=== PATIENT | female | born 1980 | race Caucasian/White ===

== ENCOUNTER 2021-04-22 13:31 | Emergency (ER) | payer MEDICAID ==
[~2021-04-22] VITALS: Ht 157.5 cm; Wt 61.2 kg
[2021-04-22 14:39] VITALS: BP 155/102
[2021-04-22] MEDS ORDERED: ONDANSETRON ODT 4 MG TAB PO ONE (14:45)
[2021-04-22] MEDS ORDERED: ACETAMINOPHEN/CODEINE#3 (300/30mg) TAB PO ONE (14:45)
== END 2021-04-22 15:51 | disposition left against medical advice (07) ==
LOC: ER 13:31
DX: U07.1 COVID-19 (principal); G44.209 Tension-type headache, unspecified, not intractable
CPT/HCPCS: 36415; 70450; 71045; 87426; 99285; Q0162

== ENCOUNTER 2024-01-24 21:50 | Emergency (ER) | payer MEDICAID ==
[~2024-01-24] VITALS: Ht 157.5 cm; Wt 68.8 kg
[2024-01-24 22:19] LABS: Urine Bacteria None Seen /hpf (None Seen)
[2024-01-24 22:29] LABS: Urine Blood 1+ /uL (Negative); Urine Clarity Clear (Clear); Urine Color Light-Yellow (Yellow); Urine Protein, UAD 1+ (Negative); Urine Specific Gravity 1.016 (1.001-1.035); Urine Urobilinogen Normal (Negative); Urine WBC 1 /hpf (0 - 5)
[2024-01-24 23:08] LABS: Basophils # (auto) 0.1 10 ^3/uL (0-0.2); Eosinophils # (auto) 0.4 10 ^3/uL (0-0.8); Lymphocytes # (auto) 3.8 10 ^3/uL (0.4-5.4); Monocytes # (auto) 0.7 10 ^3/uL (0-1.3); Nucleated Red Blood Cells % 0.1 %; Red Cell Distribution Width 14.3 % (11.8-14.3)
[2024-01-24 23:11] LABS: Eosinophils % (auto) 3.8 % (0.0-7.0); Hematocrit 42.1 % (36.0-46.0); Lymphocytes % (auto) 32.8 % (10.0-50.0); Mean Corpuscular Hemoglobin 29.1 pg (28.0-32.0); Mean Corpuscular Hgb Conc. 33.3 g/dL (32.0-36.0); Mean Corpuscular Volume 87.6 fL (80.0-100.0); Monocytes % (auto) 6.1 % (0.0-12.0); Neutrophils # (auto) 6.6 10 ^3/uL (1.6-8.6); Neutrophils % (auto) 56.3 % (37.0-80.0); Platelet Count (auto) 526 10^3/uL (140-450); White Blood Cell 11.7 10^3/uL (4.4-10.8)
[2024-01-24 23:25] LABS: Alanine Aminotransferase 14 U/L (7-40); Albumin 5.1 g/dL (3.2-4.8); Alkaline Phosphatase 130 U/L (46-116); Anion Gap 9 (5-15); Aspartate Aminotransferase 16 U/L (13-40); BUN/Creatinine Ratio 12.4 (10.0-20.0); Blood Urea Nitrogen 23 mg/dL (9-23); Calcium 9.9 mg/dL (8.7-10.4); Carbon Dioxide 24 mmol/L (20-31); Chloride 106 mmol/L (98-107); Glucose 107 mg/dL (74-106); Lipase 40 U/L (12-53); Potassium 3.1 mmol/L (3.5-5.1); Sodium 139 mmol/L (136-145)
[2024-01-24 23:26] LABS: Bilirubin, Total 0.4 mg/dL (0.2-1.0); Total Protein 8.2 g/dL (5.7-8.2)
[2024-01-25 00:37] VITALS: BP 149/90; PULSE 96; RESP 16; TEMP 98.1; O2SAT 99
[2024-01-25] MEDS: ONDANSETRON HCL 4 MG/2 ML VIAL IV ONE (00:37)
[2024-01-25] MEDS: KETOROLAC TROMETH 30 MG/ML 1ML VIAL IM ONE (00:42)
== END 2024-01-25 00:47 | disposition home or self-care (01) ==
LOC: ER 21:50
DX: K80.20 Calculus of gallbladder without cholecystitis without obstruction (principal)
CPT/HCPCS: 36415; 76705; 80053; 81001; 83690; 85025; 96372; 99285; J1885

== ENCOUNTER 2025-02-23 16:43 | Inpatient (IN) | payer MEDICAID ==
[~2025-02-23] VITALS: Ht 157.5 cm; Wt 68.0 kg
--- NOTE | 2025-02-23 17:58 | ED.PDOC ---
History of Present Illness HPI Comments 44-year-old female brought in by ambulance with a prior surgical history of a cholecystectomy, in the chief complaint of abdominal pain. Patient has been having right lower quadrant pain for the past hour associated with nausea. Patient notes on having some with the pain in the past. Denies any other symptoms at this time. Denies chills, fever, /V/D, SOB, CP. No other associated symptoms, modifiers, recent injuries or sick contacts present at this time. Chief Complaint: Abdominal Pain Time Seen by MD: 17:30 Primary Care Provider: LISS AYOUB Reviewed Notes: Nurses Notes, Medications, Allergies Allergies: Coded Allergies: NO KNOWN ALLERGIES (Unverified , 09/11/13) Information Source: Patient Mode of Arrival: EMS Severity: Moderate Timing: Minutes Duration: Since onset, Minutes Prehospital treatment: None Past Medical History Surgical History: Cholecystectomy, [employer] OFFICER History: No Pertinent [employer] OFFICER History Family History Family History: Reviewed,noncontributory to illness, Unknown Social History Smoker: Non-Smoker Alcohol: Denies ETOH Use Drugs: Denies Drug Use Lives In: Home Constitutional: denies: chills, diaphoresis, fatigue, fever, malaise, sweats, weakness, others EENTM: denies: blurred vision, double vision, ear bleeding, ear discharge, ear drainage, ear pain, ear ringing, eye pain, eye redness, hearing loss, mouth pain, mouth swelling, nasal discharge, nose bleeding, nose congestion, nose pain, photophobia, tearing, throat pain, throat swelling, voice changes, others Respiratory: denies: cough, hemoptysis, orthopnea, SOB at rest, shortness of breath, SOB with excertion, stridor, wheezing, others Cardiovascular: denies: chest pain, dizzy spells, diaphoresis, Dyspnea on exertion, edema, irregular heart beat, left arm pain, lightheadedness, palpitations, PND, syncope, others Gastrointestinal: reports: abdominal pain, nausea; denies: abdomen distended, blood streaked bowels, constipated, diarrhea, dysphagia, difficulty swallowing, hematemesis, melena, poor appetite, poor fluid intake, rectal bleeding, rectal pain, vomiting, others Genitourinary: denies: abnormal vagina bleeding, burning, dyspareunia, dysuria, flank pain, frequency, hematuria, incontinence, pain, , vagina discharge, urgency, others Neurological: denies: dizziness, fainting, headache, left sided numbness, left sided weakness, numbness, paresthesia, pre-existing deficit, right sided numbness, right sided weakness, seizure, speech problems, tingling, tremors, weakness, others Musculoskeletal: denies: back pain, gout, joint pain, joint swelling, muscle pain, muscle stiffness, neck pain, others Integumetry: denies: bruises, change in color, change in hair/nails, dryness, laceration, lesions, lumps, rash, wounds, others Allergic/Immunocompromised: denies: Difficulty Healing, Frequent Infections, Hives, Itching, others Hematologic/Lymphatic: denies: anemia, blood clots, easy bleeding, easy bruising, swollen glands, others Endocrine: denies: excessive hunger, excessive sweating, excessive thirst, excessive urination, flushing, intolerance to cold, intolerance to heat, unexplained weight gain, unexplained weight loss, others Psychiatric: denies: anxiety, bipolar disorder, depression, hopeless, panic disorder, schizophrenia, sleepless, suicidal, others All Other Systems: Reviewed and Negative Physical Exam General Appearance: No Apparent Distress, Normal HEENT: Normal ENT Inspection, Pharynx Normal, TMs Normal Neck: Full Range of Motion, Non-Tender, Normal, Normal Inspection Respiratory: Chest Non-Tender, Lungs Clear, No Accessory Muscle Use, No Respiratory Distress, Normal Breath Sounds Cardiovascular: No Edema, No JVD, No Murmur, No Gallop, Normal Peripheral Pulses, Regular Rate/Rhythm Breast Exam: Deferred Gastrointestinal: No Organomegaly, Non Tender, No Pulsatile Mass, Normal Bowel Sounds, Soft Genitalia: Deferred Pelvic: Deferred Rectal: Deferred Extremities: No calf tenderness, Normal capillary refill, Normal inspection, Normal range of motion, Non-tender, No pedal edema Musculoskeletal : Apperance: Normal Neurologic: Alert, contract administrative assistant II-XII nml as Tested, No Motor Deficits, Normal Affect, Normal Mood, No Sensory Deficits Cerebellar Function: Normal Reflexes: Normal Skin: Dry, Normal Color, Warm Lymphatic: No Adenopathy Was a procedure done? Was a procedure done?: No X-Ray, Labs, Meds, VS Vital Signs Date Time Temp Pulse Resp B/P (MAP) Pulse Ox O2 Delivery O2 Flow Rate FiO2 02/23/25 18:07 Room Air* 0 21 02/23/25 18:07 98.1 93 16 151/85 (107) 100 98.1 02/23/25 18:06 93 16 151/85 02/23/25 16:56 97.6 100 20 152/80 100 97.6 Lab Test 02/23/25 17:51 Range/Units White Blood Count 14.1 H 4.4-10.8 10^3/uL Red Blood Count 5.02 4.0-5.20 10^6/uL Hemoglobin 14.1 12.2-16.2 g/dL Hematocrit 41.9 36.0-46.0 % Mean Corpuscular Volume 83.5 80.0-100.0 fL Mean Corpuscular Hemoglobin 28.1 28.0-32.0 pg Mean Corpuscular Hemoglobin Concent 33.6 32.0-36.0 g/dL Red Cell Distribution Width 13.9 11.8-14.3 % Platelet Count 478 H 140-450 10^3/uL Mean Platelet Volume 7.2 6.9-10.8 fL Neutrophils (%) (Auto) 84.6 H 37.0-80.0 % Lymphocytes (%) (Auto) 10.2 10.0-50.0 % Monocytes (%) (Auto) 3.8 0.0-12.0 % Eosinophils (%) (Auto) 0.8 0.0-7.0 % Basophils (%) (Auto) 0.6 0.0-2.0 % Neutrophils # (Auto) 11.9 H 1.6-8.6 10 ^3/uL Lymphocytes # (Auto) 1.4 0.4-5.4 10 ^3/uL Monocytes # (Auto) 0.5 0-1.3 10 ^3/uL Eosinophils # (Auto) 0.1 0-0.8 10 ^3/uL Basophils # (Auto) 0.1 0-0.2 10 ^3/uL Nucleated Red Blood Cells 0.3 % Sodium Level 138 136-145 mmol/L Potassium Level 4.1 3.5-5.1 mmol/L Chloride Level 102 98-107 mmol/L Carbon Dioxide Level 25 20-31 mmol/L Anion Gap 11 5-15 Blood Urea Nitrogen 27 H 9-23 mg/dL Creatinine 2.07 H 0.550-1.02 mg/dL Glomerular Filtration Rate Calc 30 >90 mL/min BUN/Creatinine Ratio 13.0 10.0-20.0 Serum Glucose 118 H 74-106 mg/dL Calcium Level 9.7 8.7-10.4 mg/dL Total Bilirubin 0.4 0.2-1.0 mg/dL Aspartate Amino Transferase (AST) 22 13-40 U/L Alanine Aminotransferase (ALT) 13 7-40 U/L Alkaline Phosphatase 127 H 46-116 U/L Total Protein 8.3 H 5.7-8.2 g/dL Albumin 4.7 3.2-4.8 g/dL Lipase 30 12-53 U/L Current Medications Medications (Trade) Dose Ordered Sig/Que Route Start Time Stop Time Status Last Admin Sodium Chloride 1,000 ml @ 1,000 mls/hr Q1H ONCE IV 02/23/25 17:30 02/23/25 18:29 DC 02/23/25 18:00 Morphine Sulfate 4 mg ONCE ONCE IV 02/23/25 17:30 02/23/25 17:31 DC 02/23/25 18:06 Ondansetron HCl (Zofran) 4 mg ONCE ONCE IV 02/23/25 17:30 02/23/25 17:31 DC 02/23/25 18:03 Time of 1ST Reevaluation: 18:00 Reevaluation 1ST: Unchanged Patient Education/Counseling: Diagnosis, Treatment, Prognosis Family Education/Counseling: No Family Present SEPSIS Sepsis Screen Date sepsis recognized/suspect: Feb 23, 2025 Time Sepsis recognized/suspect: 1700 Recent Procedure: No On Antibiotic Therapy: No Respiratory Rate >20: No Heart Rate >90: Yes Temp<36 C (96.8 F) or >38.3 C: No SBP <90 or MAP <65 mmHG: No New Acute Mental Status Change: No Is the patient on CPAP, BIPAP,: No Physician Orders Urinalysis (02/23/25 17:29) Ct Ab Pel Wo Con-No Oral Or Iv (02/23/25 18:35) Vital Signs Date Time Temp Pulse Resp B/P (MAP) Pulse Ox O2 Delivery O2 Flow Rate FiO2 02/23/25 18:07 Room Air* 0 21 02/23/25 18:07 98.1 93 16 151/85 (107) 100 98.1 02/23/25 18:06 93 16 151/85 02/23/25 16:56 97.6 100 20 152/80 100 97.6 Laboratory Tests Test 02/23/25 17:51 White Blood Count 14.1 10^3/uL (4.4-10.8) H Medications Medications Dose Ordered Sig/Que Route Start Time Stop Time Status Last Admin Dose Admin Morphine Sulfate 4 mg ONCE ONCE IV 02/23/25 17:30 02/23/25 17:31 DC 02/23/25 18:06 Ondansetron HCl 4 mg ONCE ONCE IV 02/23/25 17:30 02/23/25 17:31 DC 02/23/25 18:03 Sodium Chloride 1,000 ml @ 1,000 mls/hr Q1H ONCE IV 02/23/25 17:30 02/23/25 18:29 DC 02/23/25 18:00 Departure 1 Departure Time of Disposition: 19:43 Impression: Primary Impression: Abdominal pain Additional Impressions: Adrenalitis JOSE (acute kidney injury) Critical Care Note Critical Care Time?: No Stability Stability form required: No I personally scribed for MARISA HOOD MD ([email or web address]) on 02/23/25 at 17:58. Electronically submitted by Aleksandr Dill ([email or web address]). MARISA HOOD MD Feb 23, 2025 17:58 JESSIE PETER MD Feb 23, 2025 19:44
[2025-02-23] MEDS: SODIUM CHLORIDE 0.9% 1,000 ML IV ONE (18:00)
[2025-02-23] MEDS: ONDANSETRON HCL 4 MG/2 ML VIAL IV ONE (18:03)
[2025-02-23 18:04] LABS: Hemoglobin 14.1 g/dL (12.2-16.2); Mean Corpuscular Volume 83.5 fL (80.0-100.0)
[2025-02-23 18:05] LABS: Hematocrit 41.9 % (36.0-46.0); Mean Corpuscular Hemoglobin 28.1 pg (28.0-32.0); Nucleated Red Blood Cells % 0.3 %
[2025-02-23] MEDS: MORPHINE SULFATE 4 MG/ML SYR/VIAL IV ONE (18:06)
[2025-02-23 18:07] VITALS: BP 151/85; PULSE 93; RESP 16; TEMP 98.1; O2SAT 100
[2025-02-23 18:12] LABS: Alanine Aminotransferase 13 U/L (7-40); Albumin 4.7 g/dL (3.2-4.8); Anion Gap 11 (5-15); BUN/Creatinine Ratio 13.0 (10.0-20.0); Calcium 9.7 mg/dL (8.7-10.4); Carbon Dioxide 25 mmol/L (20-31); Chloride 102 mmol/L (98-107); Lipase 30 U/L (12-53); Potassium 4.1 mmol/L (3.5-5.1); Sodium 138 mmol/L (136-145)
[2025-02-23 18:13] LABS: Bilirubin, Total 0.4 mg/dL (0.2-1.0)
[2025-02-23 18:17] LABS: Alkaline Phosphatase 127 U/L (46-116); Blood Urea Nitrogen 27 mg/dL (9-23); Glucose 118 mg/dL (74-106); Total Protein 8.3 g/dL (5.7-8.2)
--- NOTE | 2025-02-23 19:37 | DVH ---
COMPUTERIZED TOMOGRAPHY ABDOMEN AND PELVIS WITHOUT CONTRAST REASON FOR EXAM: Abdominal pain COMPARISON: None TECHNIQUE: Spiral scans were acquired from the diaphragm to the symphysis pubis without intravenous contrast administration. 2-D coronal and sagittal reformatted images were provided. Radiation optimization: All CT scans at this facility use at least one of these dose optimization techniques: Automated exposure control mA and/or kV adjustment per patient size (includes targeted exams where dose is matched to clinical indication) or iterative reconstruction. RADIATION DOSE: CTDI: 8 mGy DLP: 419 mGy-cm FINDINGS: There is minimal dependent atelectasis in bilateral lower lobes of the lungs. There is no pleural effusion. There is no pericardial effusion. The spleen is not enlarged. The liver is normal in size and contour. Evaluation of the abdominal organs is suboptimal in the absence of intravenous contrast. The gallbladder is absent unenhanced appearance of the pancreas is grossly unremarkable. The adrenal glands appear mildly thickened. There is trace fat stranding about both adrenal glands. The kidneys are similar in size. There is no hydronephrosis of either kidney. There is mild prominence of bilateral renal pelves. No renal, ureteral, or bladder calculus is identified. The urinary bladder is within normal limits. The uterus and ovaries are within normal limits. No free fluid is identified in the abdomen or pelvis. The colonic stool burden is small. The appendix is normal. There is no distention of the small bowel. There is no abdominal aortic aneurysm. There is no pathologic lymphadenopathy by size criteria IMPRESSION: Mild thickening of bilateral adrenal glands with trace surrounding fat stranding concerning for bilateral adrenalitis. No free fluid or abscess identified. No evidence of bowel obstruction. Normal appendix.
[2025-02-23 19:54] LABS: Urine Protein, UAD 1+ (Negative)
[2025-02-23] MEDS ORDERED: HYDROcodone-ACET 5/325MG TAB PO PRN (21:00)
--- NOTE | 2025-02-23 21:03 | DVHHPRES ---
History of Present Illness Resident Creating Document: PIEDAD MURPHY RESIDENT History of Present Illness This is a 44-year-old female with past medical history of hypertension, CKD stage 4 presented to the ED with a chief complaint of severe upper abdominal pain and nausea since 4:00 p.m. prior to this visit. The patient stated that since 4:00 p.m. she started having severe upper abdominal pain which is sharp colicky pain, 15/10, localized, nonradiating without any aggravating and relieving factors and associated with nausea. She also complaint of burning sensation in the urine, urgency and hesitancy for the same duration. She denies fever, chills, shortness of breath, vomiting, recent traveling, positive sick contact or any altered bowel habit. PCP: Dr. Kang Past Medical History Hypertension, CKD stage 4 Past Surgical History: Cholecystectomy Past Surgical History Cholecystectomy, Family History Noncontributory Past Social History Lives with family Former smoker, vapes, nonalcoholic and never did any other drugs Review of Systems Constitutional: No: Fever, Chills, Sweats, Weakness, Malaise, Other Eyes: No: Pain, Vision change, Conjunctivae inflammation, Eyelid inflammation, Other, Redness ENT: No: Ear pain, Ear discharge, Nose pain, Nose discharge, Nose congestion, Mouth pain, Mouth swelling, Throat pain, Throat swelling, Other Respiratory: No: Cough, Dry, Shortness of breath, SOB with excertion, Wheezing, Hemoptysis, Pleuritic Pain, Sputum, Wheezing, Other Cardiovascular: No: Chest Pain, Palpitations, Orthopnea, Paroxysmal Noc. Dyspnea, Edema, Lt Headedness, Other Gastrointestinal: Nausea, Abdominal Pain; No: Vomiting, Diarrhea, Constipation, Melena, Hematochezia, Other Genitourinary: Dysuria, Frequency; No Incontinence, No Hematuria, No Retention, No Other Musculoskeletal: No: other, neck pain, shoulder pain, arm pain, back pain, hand pain, leg pain, foot pain Skin: No: Rash, Lesions, Jaundice, Bruising, Other Neurological: No: Weakness, Numbness, Incoordination, Change in speech, Confusion, Seizures, Other Allergies: Coded Allergies: NO KNOWN ALLERGIES (Unverified , 09/11/13) Medications Current Medications Medications Dose Ordered Sig/Que Route Start Time Stop Time Status Last Admin Dose Admin Ceftriaxone Sodium 50 ml @ 100 mls/hr DAILY IV 02/24/25 10:00 UNV Acetaminophen/ Hydrocodone Bitart 1 tab Q4HPRN PRN PO 02/23/25 21:00 UNV Exam Vital Signs Vital Signs Date Time Temp Pulse Resp B/P (MAP) Pulse Ox O2 Delivery O2 Flow Rate FiO2 02/23/25 18:07 Room Air* 0 21 02/23/25 18:07 98.1 93 16 151/85 (107) 100 98.1 Exam Physical examination: General Appearance: Alert, Oriented X3, Cooperative, No acute distress HEENT: Atraumatic, PERRLA, EOMI, Mucous membrane moist/pink Respiratory: Clear to auscultation, Normal air movement Cardiovascular: Regular rate, Normal S1, Normal S2, No murmurs, no chest wall tenderness Abdominal: Normal bowel sounds, Soft, mild tenderness in the epigastric region, No hepatospenomegaly, No masses Extremities: No clubbing, No cyanosis, No edema, Normal pulses, No tenderness/swelling Skin: No rashes, No breakdown, No significant lesion Neuro: Normal gait, Normal speech, Strength at 5/5 X4 ext, Normal tone, Sensation intact, Cranial nerves 3-12 NL, Reflexes 2+ Psych/Mental Status: Mental status NL, Mood NL Labs/Xrays Labs Test 02/23/25 19:20 02/23/25 17:51 Range/Units Urine Color Light-yellow Yellow Urine Clarity Clear Clear Urine pH 6.0 5.0-9.0 Urine Specific [place] 1.013 1.001-1.035 Urine Protein 1+ H Negative Urine Ketones Negative Negative Urine Blood 1+ H Negative /uL Urine Nitrite Negative Negative Urine Bilirubin Negative Negative Urine Urobilinogen Normal Negative mg/dL Urine Leukocyte Esterase 2+ Negative /uL Urine RBC 6 0 - 4 /hpf Urine Microscopic WBC 3 0-5 /HPF Urine Squamous Epithelial Cells Few <5 /hpf Urine Bacteria Few H None Seen /hpf Urine Glucose Normal Normal mg/dL White Blood Count 14.1 H 4.4-10.8 10^3/uL Red Blood Count 5.02 4.0-5.20 10^6/uL Hemoglobin 14.1 12.2-16.2 g/dL Hematocrit 41.9 36.0-46.0 % Mean Corpuscular Volume 83.5 80.0-100.0 fL Mean Corpuscular Hemoglobin 28.1 28.0-32.0 pg Mean Corpuscular Hemoglobin Concent 33.6 32.0-36.0 g/dL Red Cell Distribution Width 13.9 11.8-14.3 % Platelet Count 478 H 140-450 10^3/uL Mean Platelet Volume 7.2 6.9-10.8 fL Neutrophils (%) (Auto) 84.6 H 37.0-80.0 % Lymphocytes (%) (Auto) 10.2 10.0-50.0 % Monocytes (%) (Auto) 3.8 0.0-12.0 % Eosinophils (%) (Auto) 0.8 0.0-7.0 % Basophils (%) (Auto) 0.6 0.0-2.0 % Neutrophils # (Auto) 11.9 H 1.6-8.6 10 ^3/uL Lymphocytes # (Auto) 1.4 0.4-5.4 10 ^3/uL Monocytes # (Auto) 0.5 0-1.3 10 ^3/uL Eosinophils # (Auto) 0.1 0-0.8 10 ^3/uL Basophils # (Auto) 0.1 0-0.2 10 ^3/uL Nucleated Red Blood Cells 0.3 % Sodium Level 138 136-145 mmol/L Potassium Level 4.1 3.5-5.1 mmol/L Chloride Level 102 98-107 mmol/L Carbon Dioxide Level 25 20-31 mmol/L Anion Gap 11 5-15 Blood Urea Nitrogen 27 H 9-23 mg/dL Creatinine 2.07 H 0.550-1.02 mg/dL Glomerular Filtration Rate Calc 30 >90 mL/min BUN/Creatinine Ratio 13.0 10.0-20.0 Serum Glucose 118 H 74-106 mg/dL Calcium Level 9.7 8.7-10.4 mg/dL Lipase 30 12-53 U/L SEPSIS Sepsis Screen Date sepsis recognized/suspect: Feb 23, 2025 Time Sepsis recognized/suspect: 1811 Recent Procedure: No On Antibiotic Therapy: No Respiratory Rate >20: No Heart Rate >90: No Temp<36 C (96.8 F) or >38.3 C: No SBP <90 or MAP <65 mmHG: No New Acute Mental Status Change: No Is the patient on CPAP, BIPAP,: No Physician Orders Ct Ab Pel Wo Con-No Oral Or Iv (02/23/25 18:35) Admit (02/23/25 20:53) Lactic Acid W/ Reflex Order (02/23/25 20:53) Hepatic Panel (02/23/25 20:53) Troponin-I Hs (02/23/25 20:53) Urine Bacterial Culture (02/23/25 20:53) Kidney (02/23/25 20:53) Ceftriaxone 1gm/50ml (Rocephin) (02/23/25 21:00) Ceftriaxone 1gm/50ml (Rocephin) (02/24/25 10:00) Code Status (02/23/25 20:53) Hydrocodone-Acet 5/325mg Tab (Ida 32 (02/23/25 21:00) Clear Liq Diet (02/24/25 Breakfast) Vital Signs Date Time Temp Pulse Resp B/P (MAP) Pulse Ox O2 Delivery O2 Flow Rate FiO2 02/23/25 18:07 Room Air* 0 21 02/23/25 18:07 98.1 93 16 151/85 (107) 100 98.1 02/23/25 18:06 93 16 151/85 02/23/25 16:56 97.6 100 20 152/80 100 97.6 Laboratory Tests Test 02/23/25 17:51 White Blood Count 14.1 10^3/uL (4.4-10.8) H Medications Medications Dose Ordered Sig/Que Route Start Time Stop Time Status Last Admin Dose Admin Morphine Sulfate 4 mg ONCE ONCE IV 02/23/25 17:30 02/23/25 17:31 DC 02/23/25 18:06 4 MG Ondansetron HCl 4 mg ONCE ONCE IV 02/23/25 17:30 02/23/25 17:31 DC 02/23/25 18:03 4 MG Sodium Chloride 1,000 ml @ 1,000 mls/hr Q1H ONCE IV 02/23/25 17:30 02/23/25 18:29 DC 02/23/25 18:00 1,000 MLS/HR Assessment/Plan Assessment/Plan Assessment and plan: # Acute complicated UTI # Bilateral adrenalitis # Intractable abdominal pain due to above # Possible JOSE superimposed on CKD stage 4 - CT abdomen pelvis without contrast demonstrated mild thickening of bilateral adrenal glands with trace surrounding fat stranding concerning for bilateral adrenalitis. - U/A was consistent with UTI - pending lactic acid, kidney ultrasound, urine bacterial culture - IV ceftriaxone 1 g daily - IV NS 75 cc/hour daily - IV ondansetron 4 mg IV once Goal of care and code status discussed with the patient for more than 20 minutes full code Plan discussed with Dr. Samano Plan discussed with: Patient, Other (RN) My Orders Orders - PIEDAD MURPHY RESIDENT Procedure Category Date Status Time Admit ADMIT 02/23/25 Transmitted 20:53 Lactic Acid W/ Reflex LAB 02/23/25 Logged Order 20:53 Hepatic Panel LAB 02/23/25 Logged 20:53 Troponin-I Hs LAB 02/23/25 Logged 20:53 Urine Bacterial GRIS 02/23/25 Logged Culture 20:53 Kidney US 02/23/25 Logged 20:53 Ceftriaxone 1gm/50ml PHA 02/23/25 Logged (Rocephin) 21:00 Ceftriaxone 1gm/50ml PHA 02/24/25 Logged (Rocephin) 10:00 Code Status CODE 02/23/25 Transmitted 20:53 Hydrocodone-Acet PHA 02/23/25 Logged 5/325mg Tab (Ida 21:00 Clear Liq Diet DIET 02/24/25 Verified Breakfast Date of Service: Feb 23, 2025 Billing Provider: MARY SAMANO MD Common Visit Codes: 50934-[id number] INP/OBS CARE (HIGH) Secondary Visit Codes: 35527-[id number] CARE PLAN 30 MINUTES PIEDAD MURPHY RESIDENT Feb 23, 2025 21:03
--- NOTE | 2025-02-23 22:25 | DVH ---
INDICATION: JOSE on CKD TECHNIQUE: Multiple real-time sonographic images of the kidneys and bladder were obtained. COMPARISON: Non none e FINDINGS: The right kidney measures 8.4 cm cm in length, which is normal in size. There is normal echogenicity of the right kidney. No hydronephrosis. The left kidney measures 8 cm cm in length, which is normal in size. There is normal echogenicity of the left kidney. No hydronephrosis. No large intraluminal masses are seen in the bladder. Prior to voiding the bladder volume measures volume 96.6 mL Bilateral ureteral jets were visualized. Bladder wall measures 2 mm. No postvoid bladder images were received. IMPRESSION: 1. Right kidney measures 8.4 cm. Left kidney measures 8 cm. Findings are consistent with renal atrophy. 2. Prevoid bladder volume 96.6 mL. No postvoid bladder volume was received. 3. Bilateral ureteral jets were visualized.
--- NOTE | 2025-02-24 06:54 | DVHDSRES ---
Discharge Summary Date of Admission Resident Creating Document: PIEDAD MURPHY RESIDENT Feb 23, 2025 at 20:53 Date of Discharge: Feb 24, 2025 Admitting Diagnosis Intractable abdominal pain Wounds: No open wound was present Labs/Diagnostic Data: Laboratory Results Test 02/23/25 20:53 02/23/25 19:20 02/23/25 17:51 Lactic Acid Level 0.7 mmol/L (0.4-2.0) Urine Color Light-yellow (Yellow) Urine Clarity Clear (Clear) Urine pH 6.0 (5.0-9.0) Urine Specific Viola 1.013 (1.001-1.035) Urine Protein 1+ (Negative) Urine Ketones Negative (Negative) Urine Blood 1+ /uL (Negative) Urine Nitrite Negative (Negative) Urine Bilirubin Negative (Negative) Urine Urobilinogen Normal mg/dL (Negative) Urine Leukocyte Esterase 2+ /uL (Negative) Urine RBC 6 /hpf (0 - 4) Urine Microscopic WBC 3 /HPF (0-5) Urine Squamous Epithelial Cells Few /hpf (<5) Urine Bacteria Few /hpf (None Seen) Urine Glucose Normal mg/dL (Normal) White Blood Count 14.1 10^3/uL (4.4-10.8) Red Blood Count 5.02 10^6/uL (4.0-5.20) Hemoglobin 14.1 g/dL (12.2-16.2) Hematocrit 41.9 % (36.0-46.0) Mean Corpuscular Volume 83.5 fL (80.0-100.0) Mean Corpuscular Hemoglobin 28.1 pg (28.0-32.0) Mean Corpuscular Hemoglobin Concent 33.6 g/dL (32.0-36.0) Red Cell Distribution Width 13.9 % (11.8-14.3) Platelet Count 478 10^3/uL (140-450) Mean Platelet Volume 7.2 fL (6.9-10.8) Neutrophils (%) (Auto) 84.6 % (37.0-80.0) Lymphocytes (%) (Auto) 10.2 % (10.0-50.0) Monocytes (%) (Auto) 3.8 % (0.0-12.0) Eosinophils (%) (Auto) 0.8 % (0.0-7.0) Basophils (%) (Auto) 0.6 % (0.0-2.0) Neutrophils # (Auto) 11.9 10 ^3/uL (1.6-8.6) Lymphocytes # (Auto) 1.4 10 ^3/uL (0.4-5.4) Monocytes # (Auto) 0.5 10 ^3/uL (0-1.3) Eosinophils # (Auto) 0.1 10 ^3/uL (0-0.8) Basophils # (Auto) 0.1 10 ^3/uL (0-0.2) Nucleated Red Blood Cells 0.3 % Sodium Level 138 mmol/L (136-145) Potassium Level 4.1 mmol/L (3.5-5.1) Chloride Level 102 mmol/L (98-107) Carbon Dioxide Level 25 mmol/L (20-31) Anion Gap 11 (5-15) Blood Urea Nitrogen 27 mg/dL (9-23) Creatinine 2.07 mg/dL (0.550-1.02) Glomerular Filtration Rate Calc 30 mL/min (>90) BUN/Creatinine Ratio 13.0 (10.0-20.0) Serum Glucose 118 mg/dL (74-106) Calcium Level 9.7 mg/dL (8.7-10.4) Total Bilirubin 0.4 mg/dL (0.2-1.0) Direct Bilirubin < 0.1 mg/dL (<0.3) Aspartate Amino Transferase (AST) 22 U/L (13-40) Alanine Aminotransferase (ALT) 13 U/L (7-40) Alkaline Phosphatase 127 U/L (46-116) Troponin I High Sensitivity 7 ng/L (</=34) Total Protein 8.3 g/dL (5.7-8.2) Albumin 4.7 g/dL (3.2-4.8) Lipase 30 U/L (12-53) Thyroid Stimulating Hormone (TSH) 2.32 uIU/mL (0.55-4.78) Other Laboratory Tests 02/23/25 17:51 Brief Hx & Hospital Course: This is a 44-year-old female with past medical history of hypertension, CKD stage 4 presented to the ED with a chief complaint of severe upper abdominal pain and nausea since 4:00 p.m. prior to this visit. The patient stated that since 4:00 p.m. she started having severe upper abdominal pain which is sharp colicky pain, 15/10, localized, nonradiating without any aggravating and relieving factors and associated with nausea. She also complaint of burning sensation in the urine, urgency and hesitancy for the same duration. CT abdomen pelvis without contrast showed Mild thickening of bilateral adrenal glands with trace surrounding fat stranding concerning for bilateral adrenalitis. U/A was consistent with UTI. Patient was treated with IV N/S bolus, iv ceftriaxone 1 gm daily and resumed home medications. Patient left AMA Consults/Reason for consult No consultation was done Operations or Procedures COMPUTERIZED TOMOGRAPHY ABDOMEN AND PELVIS WITHOUT CONTRAST REASON FOR EXAM: Abdominal pain FINDINGS: There is minimal dependent atelectasis in bilateral lower lobes of the lungs. There is no pleural effusion. There is no pericardial effusion. The spleen is not enlarged. The liver is normal in size and contour. Evaluation of the abdominal organs is suboptimal in the absence of intravenous contrast. The gallbladder is absent unenhanced appearance of the pancreas is grossly unremarkable. The adrenal glands appear mildly thickened. There is trace fat stranding about both adrenal glands. The kidneys are similar in size. There is no hydronephrosis of either kidney. There is mild prominence of bilateral renal pelves. No renal, ureteral, or bladder calculus is identified. The urinary bladder is within normal limits. The uterus and ovaries are within normal limits. No free fluid is identified in the abdomen or pelvis. The colonic stool burden is small. The appendix is normal. There is no distention of the small bowel. There is no abdominal aortic aneurysm. There is no pathologic lymphadenopathy by size criteria IMPRESSION: Mild thickening of bilateral adrenal glands with trace surrounding fat stranding concerning for bilateral adrenalitis. No free fluid or abscess identified. No evidence of bowel obstruction. Normal appendix. INDICATION: JOSE on CKD FINDINGS: The right kidney measures 8.4 cm cm in length, which is normal in size. There is normal echogenicity of the right kidney. No hydronephrosis. The left kidney measures 8 cm cm in length, which is normal in size. There is normal echogenicity of the left kidney. No hydronephrosis. No large intraluminal masses are seen in the bladder. Prior to voiding the bladder volume measures volume 96.6 mL Bilateral ureteral jets were visualized. Bladder wall measures 2 mm. No postvoid bladder images were received. IMPRESSION: 1. Right kidney measures 8.4 cm. Left kidney measures 8 cm. Findings are consistent with renal atrophy. 2. Prevoid bladder volume 96.6 mL. No postvoid bladder volume was received. 3. Bilateral ureteral jets were visualized. Condition at Discharge: Undetermined Final Diagnosis/Problems List # Acute complicated UTI # Bilateral adrenalitis # Intractable abdominal pain due to above # Possible JOSE superimposed on CKD stage 4 Discharge Disposition: AMA Discharge Statement: "Patient was advised to return to the ER or call 911 if any headaches, dizziness, shortness of breath, chest pain, abdominal pain, bleeding, fevers, or worsening of medical condition. Patient was counseled about treatment plan, medications, possible side effects, patientverbalized understanding. All questions were answered to the best of my ability. This discharge took greater then 30 minutes in planning, reviewing documentation, counseling the patient, and discussing with other team members." ASSESSMENT ASSESSMENT Assessment Date of Service: Feb 24, 2025 Billing Provider: MARY SAMANO MD Common Visit Codes: 57848-RPT/OBS DISCH DAY >30min PIEDAD MURPHY RESIDENT Feb 24, 2025 06:54
== END 2025-02-23 21:48 | disposition left against medical advice (07) | DRG 463 ==
LOC: ER 16:43 → EDBD 16:43 → OVERFLOW 20:53
PROVIDERS: ATTEND Emergency Medicine
DX: N39.0 Urinary tract infection, site not specified (principal); E27.8 Other specified disorders of adrenal gland; N18.4 Chronic kidney disease, stage 4 (severe); N17.9 Acute kidney failure, unspecified; I12.9 Hypertensive chronic kidney disease with stage 1 through stage 4 chronic kidney disease, or unspecified chronic kidney disease; F17.290 Nicotine dependence, other tobacco product, uncomplicated; Z53.29 Procedure and treatment not carried out because of patient's decision for other reasons; Z90.49 Acquired absence of other specified parts of digestive tract
CPT/HCPCS: 36415; 74176; 76775; 80053; 81001; 82248; 83605; 83690; 84443; 84484; 85025; 87086; 96361; 96374; 96375; G0378; J2405